=== PATIENT | female | born 1985 ===

== ENCOUNTER 2021-12-15 17:51 | Emergency (ER) | payer SELFPAY ==
[2021-12-15 17:51] VITALS: BP 132/97; PULSE 71; RESP 16; TEMP 36.6; O2SAT 100; BMI 28.3
--- NOTE | 2021-12-15 19:14 | ED.RN ---
Patient seen leaving ER. Per nurse Maritza patient was anxious and did not want to stay any longer. MD notified.
--- NOTE | 2021-12-15 21:45 | ED.VIS.GI ---
HPI HPI - GI History of Present Illness Chief Complaint: GI Bleed Narrative Narrative: After the patient had been roomed, and the chart back put in the rack, I signed up for the patient and headed directly towards the room. I was told by the RN that she had eloped. PFSH PFSH Medical History unable to obtain Allergy/AdvReac Type Severity Reaction Status Date / Time Bleach (Sodium Hypochlorite) Allergy Other Verified 12/15/21 17:55 chocolate flavor Allergy Hives Verified 12/15/21 17:55 diphenhydramine Allergy Hives Verified 12/15/21 17:55 [From Benadryl] wool Allergy Hives Verified 12/15/21 17:55 Surgical History unable to obtain Social History Smoking Status: Unknown if ever smoked EXAM Physical Exam Const Vital Signs: 12/15/21 17:51 Temperature 97.9 F Temperature Source Temporal Pulse Rate 71 Respiratory Rate 16 Blood Pressure 132/97 H Blood Pressure Mean 108 Pulse Ox 100 Oxygen Delivery Method Room Air MDM MDM MDM Narrative Medical decision making narrative: Patient had eloped prior to history and physical, almost immediately after she had been roomed. Discharge Plan Triage Chief Complaint: GI Bleed ED Provider: Adonis Rivers Dx/Rx/DC Orders Clinical Impression: Eloped from emergency department Primary Care Provider: Gamal Blanca,Out of Referrals: Gamal Blanca,Out of [Primary Care Provider] - Disposition Disposition: LEFT WITHOUT BEING SEEN Discharge Date/Time: 12/15/21 19:38
== END 2021-12-15 19:38 | disposition left against medical advice (07) ==
LOC: ED 19:38
PROVIDERS: Emergency Provider Emergency Medicine; Visit Provider Emergency Medicine
DX: K92.2 Gastrointestinal hemorrhage, unspecified (principal); Z53.21 Procedure and treatment not carried out due to patient leaving prior to being seen by health care provider